=== PATIENT | female | born 1940 | race Caucasian/White ===

== ENCOUNTER → 2023-10-24 14:28 | Outpatient (REF) | payer MEDICARE, OTHER, SELFPAY | LOC: DHCBS HW 14:28 | PROVIDERS: ATTENDING PHYSICIAN Internal Medicine Cardiovascular Disease; FAMILY PHYSICIAN Internal Medicine Geriatric Medicine | DX: I10 Essential (primary) hypertension (principal) | CPT/HCPCS: 93306 ==

== ENCOUNTER → 2023-11-05 06:22 | Day surgery (SDC) | payer MEDICARE, OTHER, SELFPAY | LOC: GI 06:22 | PROVIDERS: ATTENDING PHYSICIAN Internal Medicine Gastroenterology | DX: D50.0 Iron deficiency anemia secondary to blood loss (chronic) (principal); Z53.8 Procedure and treatment not carried out for other reasons | CPT/HCPCS: 45378; 93005 ==

== ENCOUNTER 2023-11-05 10:47 | Emergency (ER) | payer MEDICARE, OTHER, SELFPAY ==
[2023-11-05 10:50] VITALS: BP 181/106
[2023-11-05 11:15] VITALS: BP 158/86
--- NOTE | 2023-11-05 11:22 | ED.GENMED ---
History of Present Illness
General
Chief Complaint: Heart Rate Problem
Source: patient
Exam Limitations: none
Time Seen by Provider: 11/05/23 10:59
Travel History
Have you had any contact with someone who has COVID-19?: No
Do you have any symptoms of coronavirus? Fever > 100 degrees, chills, cough, shortness of breath, sore throat, loss of taste or smell, muscle aches, or headache?: No
History of Present Illness
History of Present Illness:
83-year-old female presents in referral from the GI suite after noted to be having hypertension and tachycardia preoperatively. She was due for an endoscopy and colonoscopy. She has not taken her metoprolol in 2 days. She noted no chest pain
lightheadedness shortness of breath or abdominal pain. She was asymptomatic at the time but they sent her here for evaluation.
Past History
Past History
ED Past Medical History: GERD, Hypothyroidism and Other
ED Past Surgical History: Gynecological and Urological (tyjroidectomy)
Social History
Tobacco: Non-smoker
Personal:
Living: with family
Employment: Retired
Phy Exam
Physical Exam
Physical Exam:
General: Well-appearing female no acute respiratory distress
HEENT: Normocephalic atraumatic mucosa dry
Heart: Regular but tachycardic
Lungs: Clear no wheeze or rales
Abd: Soft not nondistended
Extremities: No cyanosis or edema
Course
Orders/Labs/Results
Orders:
Orders
11/05/23 10:56
Electrocardiogram (*1) Urgent
Reason for Study: Tachycardia
EKG- Treatment ONCE
11/05/23 11:34
Complete Blood Count/With Diff Urgent
Comprehensive Metabolic Panel Urgent
11/05/23 11:40
0.9% Sodium Chloride 500 ml [Nss] 500 ml IV BOLUS
Abnormal Lab Results
11/05/23
11:34
WBC 4.6 L 10^3/uL
(4.8-10.8)
RBC 3.93 L 10^6/uL
(4.20-5.40)
Hgb 11.1 L g/dL
(12.0-16.0)
Hct 33.3 L %
(37.0-47.0)
Absolute Lymphs (auto) 0.7 L 10^3/uL
(1.2-3.4)
Neutrophils % 75.8 H %
(42.2-75.2)
Lymphocytes % 15.1 L %
(20.5-51.1)
Sodium 130 L mmol/L
(135-145)
11/05/23 11:34
11/05/23 11:34
Vital Signs
Initial and Last Documented VS:
Initial Vital Signs
Temp Pulse Resp BP Pulse Ox
98.1 F 105 20 181/106 98
11/05/23 10:50 11/05/23 10:50 11/05/23 10:50 11/05/23 10:50 11/05/23 10:50
Last Documented Vital Signs
Temp Pulse Resp BP Pulse Ox
98.1 F 105 20 181/106 98
11/05/23 10:50 11/05/23 10:50 11/05/23 10:50 11/05/23 10:50 11/05/23 11:15
MDM/Problems Addressed
Differential Diagnosis Includes:
Patient sent in for evaluation of tachycardia and hypertensive preoperatively prior to endoscopy colonoscopy. She received some fluids en route. She denies chest pain. Will check labs to evaluate for electrolyte abnormality or anemia. Hydration
ordered. Currently on the monitor she is in the 90s
*Critical Care Note
Total Time (30-74mins, 75-104mins- exclusive of procedures): Not Applicable
Update Note
Update Note:
Patient reexamined still feels well vital signs have normalized after half a liter of fluid. She has been ambulated to the bathroom without any difficulty. Hemoglobin is 11.1 sodium is 130. No indication for admission.
ED Attending Note
-
Portions of this chart may have been created with voice recognition software.� Occasional wrong word or��sound alike� substitutions may have occurred due to the inherent limitations of voice recognition software.
Discharge Plan
Departure
Patient Disposition: Home (Routine Discharge)
Date of Disposition: 11/05/23
Time of Disposition: 12:53
Patient with high blood pressure during this ER visit?: No
Discharge Problem:
Acute dehydration
Prescriptions:
No Action
levothyroxine 88 MCG tablet
88 mcg PO DAILY
cyclobenzaprine 10 MG tablet
10 mg PO DAILY PRN (Reason: muscle spasms)
Hold Instructions: Resume on 12/31/22. hold while on Baclofen
calcium carbonate 600 MG tablet
1,200 mg PO DAILY
Hair,Skin and Nails 1 EACH tablet
3 ea PO DAILY
Hold Instructions: Resume on 01/01/23.
magnesium oxide 500 MG capsule
500 mg PO DAILY
estradiol [Vagifem] 10 MCG tablet
10 mcg PO SUWE
Excedrin Migraine 1 TABLET tablet
1 tab PO DAILY PRN (Reason: headache)
atorvastatin 20 mg Tablet
20 mg PO DAILY
metoprolol succinate 25 mg Tablet Extended Release 24 Hr
12.5 mg PO DAILY
cranberry 500 mg Capsule
500 mg PO DAILY
Prolia 60 mg/mL Syringe
60 mg SC [id number]
Rx Instructions:
last taken 3 months ago
vitamin E 670 mg (1,000 unit) Capsule
2,680 mg PO DAILY
Rx Instructions:
4,000 unit
diclofenac sodium 1 % gel
2 g TOPICAL TID
Rx Instructions:
apply to right knee and right leg
ibuprofen 200 MG tablet
400 mg PO BID PRN (Reason: mild pain)
pantoprazole 40 mg Tablet,Delayed Release (Dr/Ec)
40 mg PO DAILY Qty: 30 0RF
Referrals:
Deniz Mcgill MD [Family Provider] -
Activity Restrictions/Additional Instructions:
Stay hydrated. Resume current medications peer return if worse otherwise follow-up with your GI and family doctor
Interventions
Interventions:
*Risk Screen - Suicide Last Done: 11/05/23 11:06
*General Assessment Last Done: 11/05/23 11:15
*Neglect/Abuse Screening Last Done: 11/05/23 11:06
*ED COVID-19 Vaccine History Last Done: 11/05/23 11:15
ED- Cardiac Assessment Last Done: 11/05/23 11:15
ED- Pulmonary Assessment Last Done: 11/05/23 11:15
Discharge Date and Time
Print Language: ESTONIAN
[2023-11-05 11:41] VITALS: BP 148/77
[2023-11-05] MEDS: NSS 500 IV (11:41)
[2023-11-05 11:47] LABS: % Basophils 0.4 % (0-2); % Eosinophils 1.3 % (0-6); % Immature Granulocytes 0.2 % (0-0.5); % Lymphocytes 15.1 % (20.5-51.1); % Monocytes 7.2 % (1.7-9.3); % Neutrophils 75.8 % (42.2-75.2); Absolute Eosinophils 0.1 10^3/uL (0-0.7); Absolute Lymphocytes 0.7 10^3/uL (1.2-3.4); Absolute Monocytes 0.3 10^3/uL (0.1-0.6); Absolute Neutrophils 3.5 10^3/uL (1.4-6.5); Hematocrit 33.3 % (37.0-47.0); Hemoglobin 11.1 g/dL (12.0-16.0); Mean Corp Hgb Conc. 33.3 g/dL (33.0-37.0); Mean Corpuscular Hgb 28.2 pg (27.0-31.0); Mean Corpuscular Volume 84.7 fL (81.0-99.0); Mean Platelet Volume 9.4 fL (7.4-10.4); Nucleated Red Blood Cells % 0 %; Platelet Count 200 10^3/uL (130-400); Red Blood Cell Count 3.93 10^6/uL (4.20-5.40); Red Cell Dist. Width 13.6 % (11.5-14.5); White Blood Cell Count 4.6 10^3/uL (4.8-10.8)
[2023-11-05 12:00] VITALS: BP 139/86
[2023-11-05 12:04] LABS: ALT (SGPT) 13 U/L (0-35); AST (SGOT) 26 U/L (14-36); Albumin 4.1 g/dl (3.5-5.0); Alkaline Phosphatase 61 U/L (38-126); Blood Urea Nitrogen 11 mg/dl (7-17); Calcium 8.5 mg/dl (8.4-10.2); Carbon Dioxide 23 mmol/L (22-30); Chloride 101 mmol/L (98-107); Glucose 96 mg/dl (70-99); Potassium 4.4 mmol/L (3.5-5.1); Sodium 130 mmol/L (135-145); Total Bilirubin 0.5 mg/dl (0.2-1.3); Total Protein 6.4 g/dl (6.3-8.2); eGFR > 60.00
[2023-11-05 13:00] VITALS: BP 152/71
== END 2023-11-05 13:08 | disposition home or self-care (01) ==
LOC: EMR 10:47
PROVIDERS: Physician Assistant; EMERGENCY PHYSICIAN Emergency Medicine; FAMILY PHYSICIAN Internal Medicine Geriatric Medicine
DX: E86.0 Dehydration (principal)
CPT/HCPCS: 99284; 80053; 85025; 93005

== ENCOUNTER → 2023-11-21 12:31 | Outpatient (REF) | payer MEDICARE, OTHER, SELFPAY | LOC: DHCBC/DCA 12:31 | PROVIDERS: ATTENDING PHYSICIAN Nurse Practitioner; FAMILY PHYSICIAN Internal Medicine Geriatric Medicine | DX: R00.0 Tachycardia, unspecified (principal); R94.31 Abnormal electrocardiogram [ECG] [EKG]; R42 Dizziness and giddiness | CPT/HCPCS: 78452; 93017; A9500; J2785 ==

== ENCOUNTER 2023-11-23 21:50 | Emergency (ER) | payer MEDICARE, OTHER, SELFPAY ==
[2023-11-23 21:51] VITALS: BP 185/105
[2023-11-23 22:20] LABS: % Basophils 0.5 % (0-2); % Eosinophils 3.3 % (0-6); % Immature Granulocytes 0.3 % (0-0.5); % Lymphocytes 27.5 % (20.5-51.1); % Monocytes 8.7 % (1.7-9.3); % Neutrophils 59.7 % (42.2-75.2); Absolute Eosinophils 0.2 10^3/uL (0-0.7); Absolute Lymphocytes 1.6 10^3/uL (1.2-3.4); Absolute Monocytes 0.5 10^3/uL (0.1-0.6); Absolute Neutrophils 3.5 10^3/uL (1.4-6.5); Hematocrit 31.5 % (37.0-47.0); Hemoglobin 10.8 g/dL (12.0-16.0); Mean Corp Hgb Conc. 34.3 g/dL (33.0-37.0); Mean Corpuscular Hgb 28.5 pg (27.0-31.0); Mean Corpuscular Volume 83.1 fL (81.0-99.0); Mean Platelet Volume 9.7 fL (7.4-10.4); Nucleated Red Blood Cells % 0 %; Platelet Count 243 10^3/uL (130-400); Red Blood Cell Count 3.79 10^6/uL (4.20-5.40); Red Cell Dist. Width 13.4 % (11.5-14.5); White Blood Cell Count 5.8 10^3/uL (4.8-10.8)
[2023-11-23 22:30] LABS: ALT (SGPT) 17 U/L (0-35); AST (SGOT) 28 U/L (14-36); Albumin 4.6 g/dl (3.5-5.0); Alkaline Phosphatase 71 U/L (38-126); Blood Urea Nitrogen 18 mg/dl (7-17); Calcium 9.5 mg/dl (8.4-10.2); Carbon Dioxide 23 mmol/L (22-30); Chloride 98 mmol/L (98-107); Glucose 96 mg/dl (70-99); Potassium 4.5 mmol/L (3.5-5.1); Sodium 131 mmol/L (135-145); Total Bilirubin 0.5 mg/dl (0.2-1.3); Total Protein 6.9 g/dl (6.3-8.2); eGFR > 60.00
[2023-11-23 22:41] LABS: Troponin I < 0.012 ng/ml
--- NOTE | 2023-11-23 22:43 | ED.GENMED ---
History of Present Illness
General
Chief Complaint: Chest Pain
Source: patient
Time Seen by Provider: 11/23/23 22:31
Travel History
Have you had any contact with someone who has COVID-19?: No
Do you have any symptoms of coronavirus? Fever > 100 degrees, chills, cough, shortness of breath, sore throat, loss of taste or smell, muscle aches, or headache?: No
History of Present Illness
History of Present Illness:
83-year-old female presents to the emergency room complaining of pain located in the left lower chest and flank. Pain has been present for the past couple days. She describes it as sharp and it comes and goes. When Presidents only there for short
period of time. No associated shortness of breath. Deep inhalation does not make the pain worse. She is able to perform her normal activities without any problem. Patient did have a stress test recently. No urinary symptoms. Patient thought
her discomfort might be related to gas so she took Gas-X without any improvement. She also took Tums without improvement.
Past History
Past History
ED Past Medical History: GERD, Hypothyroidism and Other
ED Past Surgical History: Gynecological and Urological (tyjroidectomy)
Social History
Tobacco: Non-smoker
Personal:
Living: with family
Employment: Retired
Phy Exam
Physical Exam
Physical Exam:
General: Awake, Alert, Oriented X3. No acute distress, appears stated age
Vitals: Mildly hypertensive e
Head: Atraumatic
Eyes: Pupils equal, EOMI
Throat: Airway intact, no exudates
Neck: Trachea midline
Lungs: Clear and equal b/l
Heart: Regular rate, occasional ectopy no murmurs
Abd: Soft, Nontender, No pulsatile mass
Neuro: Nonfocal
Skin: Warm, dry, no rash
Extremities: pulses equal b/l, no edema
Scores
Heart Score for Chest Pain Patients
STEMI patient?: No
History: Slightly or Non-Suspicious
ECG: Normal
Age: >/= 65 years
Risk Factors: 1 or 2 Risk Factors
Troponin: </= Normal Limit
Heart Score for Chest Pain Patients: 3
Heart Score Risk: 2.5% MACE over next 6 weeks
Course
Orders/Labs/Results
Orders:
Orders
11/23/23 21:54
Electrocardiogram (*1) Urgent
Reason for Study: Chest Pain
EKG- Treatment ONCE
11/23/23 22:09
Complete Blood Count/With Diff Urgent
Comprehensive Metabolic Panel Urgent
Troponin I Urgent
11/23/23 22:42
Acetaminophen [Tylenol] 1,000 mg PO NOW STA
11/23/23 22:43
Urinalysis Reflex To Culture Urgent
Date Specimen was Collected: 11/24/23
Time Specimen was Collected: 00:23
CR Chest - 2 Views Urgent
Comment:
Reason For Exam: lower left chest discomfort
11/24/23 00:33
Urine Microscopic Reflex Cult Urgent
Urine Culture Urgent
ANDRE Source: U
Specimen Description:
Date Specimen was Collected: 11/24/23
Time Specimen was Collected: 00:23
11/24/23 01:20
CT Abd/pel Without Iv Or Oral Urgent
Comment:
Reason For Exam: left flank pain
11/24/23 02:44
Lidocaine [Lidocaine 4% Patch] 1 patch TOPICAL NOW STA
11/24/23 02:53
Cephalexin Monohydrate [Keflex] 500 mg PO NOW STA
Abnormal Lab Results
11/23/23 11/24/23
22:09 00:33
RBC 3.79 L 10^6/uL
(4.20-5.40)
Hgb 10.8 L g/dL
(12.0-16.0)
Hct 31.5 L %
(37.0-47.0)
Sodium 131 L mmol/L
(135-145)
BUN 18 H mg/dl
(7-17)
Leukocyte Esterase Rfl 2+ A
(Negative)
Urine RBC 3-6 A /HPF
(0-2)
Urine WBC (Reflex) 50-60 A /HPF
(0-5)
Urine Bacteria (Reflex) Many A
(Negative)
11/23/23 22:09
11/23/23 22:09
Vital Signs
Initial and Last Documented VS:
Initial Vital Signs
Temp Pulse Resp BP Pulse Ox
97.8 F 79 16 185/105 99
11/23/23 21:51 11/23/23 21:51 11/23/23 21:51 11/23/23 21:51 11/23/23 21:51
Last Documented Vital Signs
Temp Pulse Resp BP Pulse Ox
97.8 F 80 14 168/99 99
11/23/23 21:51 11/24/23 02:35 11/24/23 02:35 11/24/23 02:35 11/23/23 21:51
MDM/Problems Addressed
Differential Diagnosis Includes:
Chest wall strain, acute coronary syndrome, pneumothorax, kidney stone,
MDM/Problems Addressed:
Patient's presentation does not seem consistent with acute coronary syndrome. Her EKG shows no ischemic changes. Troponin is normal. Chest x-ray shows no acute abnormalities. CT of the abdomen pelvis performed which shows no evidence of kidney
stone. Urinalysis suggestive of urinary tract infection with 50-60 WBCs. There are a increased number of squames and urethral cells. This could represent contamination but with such a large number of WBCs I suspect it is more consistent with an
infection so we will cover with Keflex. Patient is noted to have had some rash with Rocephin but this was given simultaneously with morphine. Suspect the rash is more likely with morphine she is tolerated other cephalosporins in the past.
*Radiology
Radiology exam reviewed: preliminary read by ED provider (Chest x-ray reviewed by myself no acute disease) and radiology read reviewed
*Pulse Oximetry
Patient hypoxic: no
*EKG
Interpreted by ED Provider?: Yes
Interpretation: abnormal
Heart Rate: 70
Rate: normal
Rhythm: sinus
Willow: normal axis
QRS Pattern: normal QRS
Ischemia: no ischemia
*Clinical Trials Nurse Interpretation
Interpretation: normal
Rhythm: sinus
*Critical Care Note
Total Time (30-74mins, 75-104mins- exclusive of procedures): Not Applicable
ED Attending Note
-
Portions of this chart may have been created with voice recognition software.� Occasional wrong word or��sound alike� substitutions may have occurred due to the inherent limitations of voice recognition software.
Discharge Plan
Departure
Patient Disposition: Home (Routine Discharge)
Date of Disposition: 11/24/23
Time of Disposition: 02:43
Patient with high blood pressure during this ER visit?: No
Condition: Good
Discharge Problem:
Acute chest wall pain, Acute UTI
Instructions: Chest Pain That Is Not Caused by the Heart (DC), Urinary Tract Infection, Adult ED
Prescriptions:
New
cephalexin 500 mg capsule
500 mg PO BID 7 Days Qty: 14 0RF
No Action
cyclobenzaprine 10 MG tablet
10 mg PO DAILY PRN (Reason: muscle spasms)
Hold Instructions: Resume on 12/31/22. hold while on Baclofen
calcium carbonate 600 MG tablet
1,200 mg PO DAILY
Hair,Skin and Nails 1 EACH tablet
3 ea PO DAILY
Hold Instructions: Resume on 01/01/23.
estradiol [Vagifem] 10 MCG tablet
10 mcg vaginal SUWE
metoprolol succinate 25 mg Tablet Extended Release 24 Hr
12.5 mg PO DAILY
cranberry 500 mg Capsule
500 mg PO DAILY
Prolia 60 mg/mL Syringe
60 mg SC [id number]
atorvastatin 40 mg Tablet
40 mg PO DAILY
hydrocodone-acetaminophen 5-325 mg Tablet
1 tab PO PRN PRN (Reason: peripheral neuropathy)
levothyroxine [Synthroid] 100 mcg Tablet
100 mcg PO DAILY
Centrum Silver Tablet
1 tab PO DAILY
Vitamin D3 100 mcg (4,000 unit) Capsule
100 mcg PO DAILY
potassium gluconate
2 tab PO HS
Referrals:
Deniz Mcgill MD [Family Provider] -
Activity Restrictions/Additional Instructions:
Take the antibiotic, Keflex, twice a day for one week. Follow up with Dr. Mcgill.
Interventions
Interventions:
*Risk Screen - Suicide Last Done: 11/23/23 21:51
*General Assessment Last Done: 11/23/23 21:51
*Neglect/Abuse Screening Last Done: 11/23/23 21:51
*ED COVID-19 Vaccine History Last Done: 11/23/23 23:30
ED- Cardiac Assessment Last Done: 11/23/23 23:30
Discharge Date and Time
Print Language: SAMI
[2023-11-23 23:22] VITALS: BMI 21.2
--- NOTE | 2023-11-23 23:23 | EDRN ---
Pt went for nuclear stress test on afternoon and felt lightheaded. Pt felt same yesterday. This morning, pt woke with pain in L chest that was intermittent and tonight, pain became constant so she called Dr Mcgill and she was instructed
to come to the ED. Thinking it was indigestion earlier, pt took 2 Tums then tried Gas-X around 1900. Pt feels bursts of 'electric shocks' that she usually feels in her feel due to peripheral neuropathy however she is feeling same in her L chest.
Pt denies sob, abd pain, n/v, fever/chills/cough, urinary symptoms
[2023-11-23] MEDS: TYLENOL 1000 MG PO (23:26)
[2023-11-23 23:30] VITALS: BP 169/84
[2023-11-24 00:46] LABS: Urine Albumin Negative (Neg - Trace); Urine Bilirubin Negative (Negative); Urine Character Slightly Cloudy (Clear); Urine Color Yellow; Urine Glucose Negative (Negative); Urine Ketone Negative (Negative); Urine Leukocyte 2+ (Negative); Urine Nitrite Negative (Negative); Urine Occult Blood Negative (Negative); Urine Urobilinogen Negative (Neg - 1+)
[2023-11-24 01:04] LABS: Urine Bacteria Many (Negative); Urine Squamous Cell >30 /LPF (Few); Urine Urothelial Cell 16-20 /LPF (FEW); Urine White Cell 50-60 /HPF (0-5)
[2023-11-24 02:35] VITALS: BP 168/99
[2023-11-24] MEDS: KEFLEX 500 MG PO (03:00)
[2023-11-24] MEDS: LIDOCAINE 4% PATCH 1 PATCH TOPICAL (03:02)
== END 2023-11-24 03:15 | disposition home or self-care (01) ==
LOC: EMR 21:50
PROVIDERS: Emergency Medicine; EMERGENCY PHYSICIAN Emergency Medicine; FAMILY PHYSICIAN Internal Medicine Geriatric Medicine
DX: N39.0 Urinary tract infection, site not specified (principal); R07.89 Other chest pain; K21.9 Gastro-esophageal reflux disease without esophagitis; E03.9 Hypothyroidism, unspecified; R10.9 Unspecified abdominal pain; Z88.2 Allergy status to sulfonamides; Z88.8 Allergy status to other drugs, medicaments and biological substances; Z88.1 Allergy status to other antibiotic agents; Z91.040 Latex allergy status; Z91.018 Allergy to other foods
CPT/HCPCS: 99284; 71046; 74176; 80053; 81003; 81015; 84484; 85025; 87086; 87088; 87186; 93005

== ENCOUNTER 2023-12-24 06:17 | Day surgery (SDC) | payer MEDICARE, OTHER, SELFPAY ==
[2023-12-24 10:51] VITALS: BMI 21.9
[2023-12-24 10:52] VITALS: BMI 21.9
[2023-12-24 10:53] VITALS: BP 148/77
[2023-12-24 14:17] VITALS: BP 150/80
[2023-12-24 14:30] VITALS: BP 165/98
[2023-12-24 14:45] VITALS: BP 158/76
== END 2023-12-24 15:00 | disposition home or self-care (01) ==
LOC: GI 06:17
PROVIDERS: ATTENDING PHYSICIAN Internal Medicine
DX: K57.30 Diverticulosis of large intestine without perforation or abscess without bleeding (principal); K64.8 Other hemorrhoids; K64.9 Unspecified hemorrhoids; D50.9 Iron deficiency anemia, unspecified; Q39.9 Congenital malformation of esophagus, unspecified; K44.9 Diaphragmatic hernia without obstruction or gangrene; K31.811 Angiodysplasia of stomach and duodenum with bleeding; K31.89 Other diseases of stomach and duodenum
CPT/HCPCS: 45378; 43239; 88305; 88342

== ENCOUNTER → 2024-01-01 08:10 | Outpatient (REF) | payer MEDICARE, OTHER, SELFPAY ==
[2024-01-01 12:50] LABS: % Basophils 0.9 % (0-2); % Eosinophils 5.1 % (0-6); % Immature Granulocytes 0.4 % (0-0.5); % Lymphocytes 29.4 % (20.5-51.1); % Neutrophils 54.2 % (42.2-75.2); Absolute Eosinophils 0.2 10^3/uL (0-0.7); Absolute Lymphocytes 1.3 10^3/uL (1.2-3.4); Absolute Monocytes 0.5 10^3/uL (0.1-0.6); Absolute Neutrophils 2.4 10^3/uL (1.4-6.5); Hematocrit 32.9 % (37.0-47.0); Hemoglobin 10.9 g/dL (12.0-16.0); Mean Corp Hgb Conc. 33.1 g/dL (33.0-37.0); Mean Corpuscular Hgb 28.5 pg (27.0-31.0); Mean Corpuscular Volume 86.1 fL (81.0-99.0); Mean Platelet Volume 10.6 fL (7.4-10.4); Nucleated Red Blood Cells % 0 %; Platelet Count 231 10^3/uL (130-400); Red Blood Cell Count 3.82 10^6/uL (4.20-5.40); Red Cell Dist. Width 13.5 % (11.5-14.5); White Blood Cell Count 4.5 10^3/uL (4.8-10.8)
[2024-01-01 13:18] LABS: ALT (SGPT) 15 U/L (0-35); AST (SGOT) 27 U/L (14-36); Alkaline Phosphatase 62 U/L (38-126); Blood Urea Nitrogen 14 mg/dl (7-17); Calcium 9.3 mg/dl (8.4-10.2); Carbon Dioxide 27 mmol/L (22-30); Chloride 103 mmol/L (98-107); Glucose 90 mg/dl (70-99); Lipase 88 U/L (23-300); Potassium 4.9 mmol/L (3.5-5.1); Sodium 135 mmol/L (135-145); Total Bilirubin 0.5 mg/dl (0.2-1.3); Total Protein 6.1 g/dl (6.3-8.2); eGFR > 60.00
[2024-01-01 13:19] LABS: Iron 117 ug/dl (37-170)
[2024-01-01 13:28] LABS: Percent Saturation 32 % (20-50); Total Iron Binding Capacity 355 ug/dl (265-497)
[2024-01-01 13:50] LABS: Ferritin 12.1 ng/ml (11.1-264.0)
== END ==
LOC: HWLAB 08:10
PROVIDERS: ATTENDING PHYSICIAN Nurse Practitioner Family; FAMILY PHYSICIAN Internal Medicine Geriatric Medicine
DX: Z00.00 Encounter for general adult medical examination without abnormal findings (principal); R10.10 Upper abdominal pain, unspecified; G47.62 Sleep related leg cramps; E61.1 Iron deficiency; D64.9 Anemia, unspecified; I10 Essential (primary) hypertension; G62.9 Polyneuropathy, unspecified; E78.2 Mixed hyperlipidemia
CPT/HCPCS: 36415; 80053; 82728; 83540; 83550; 83690; 85025

== ENCOUNTER → 2024-01-22 08:44 | Outpatient (REF) | payer MEDICARE, OTHER, SELFPAY | LOC: HWRAD 08:44 | PROVIDERS: ATTENDING PHYSICIAN Nurse Practitioner Family; FAMILY PHYSICIAN Internal Medicine Geriatric Medicine | DX: Z00.00 Encounter for general adult medical examination without abnormal findings (principal); R10.10 Upper abdominal pain, unspecified; G47.62 Sleep related leg cramps; E61.1 Iron deficiency; D64.9 Anemia, unspecified | CPT/HCPCS: 76700 ==

== ENCOUNTER → 2024-02-03 07:12 | Outpatient (REF) | payer MEDICARE, OTHER, SELFPAY ==
[2024-02-03 10:24] LABS: % Basophils 0.8 % (0-2); % Immature Granulocytes 0.2 % (0-0.5); % Lymphocytes 32.6 % (20.5-51.1); % Monocytes 8.7 % (1.7-9.3); % Neutrophils 54.7 % (42.2-75.2); Absolute Eosinophils 0.2 10^3/uL (0-0.7); Absolute Lymphocytes 1.7 10^3/uL (1.2-3.4); Absolute Monocytes 0.5 10^3/uL (0.1-0.6); Absolute Neutrophils 2.9 10^3/uL (1.4-6.5); Hematocrit 32.5 % (37.0-47.0); Hemoglobin 11.1 g/dL (12.0-16.0); Mean Corp Hgb Conc. 34.2 g/dL (33.0-37.0); Mean Corpuscular Hgb 28.8 pg (27.0-31.0); Mean Corpuscular Volume 84.2 fL (81.0-99.0); Mean Platelet Volume 9.9 fL (7.4-10.4); Nucleated Red Blood Cells % 0 %; Platelet Count 215 10^3/uL (130-400); Red Blood Cell Count 3.86 10^6/uL (4.20-5.40); Red Cell Dist. Width 13.2 % (11.5-14.5); White Blood Cell Count 5.3 10^3/uL (4.8-10.8)
[2024-02-03 10:31] LABS: Iron 68 ug/dl (37-170)
[2024-02-03 10:41] LABS: Percent Saturation 19 % (20-50); Total Iron Binding Capacity 346 ug/dl (265-497)
[2024-02-03 10:44] LABS: Free T4 1.47 ng/dl (0.78-2.19)
[2024-02-03 10:58] LABS: TSH < 0.02 uIU/ml (0.47-4.68)
[2024-02-03 11:02] LABS: Ferritin 10.2 ng/ml (11.1-264.0)
== END ==
LOC: HWLAB 07:12
PROVIDERS: ATTENDING PHYSICIAN Nurse Practitioner Family
DX: I10 Essential (primary) hypertension (principal); E03.9 Hypothyroidism, unspecified; E78.2 Mixed hyperlipidemia; D64.9 Anemia, unspecified; M81.0 Age-related osteoporosis without current pathological fracture
CPT/HCPCS: 36415; 82728; 83540; 83550; 84439; 84443; 85025

== ENCOUNTER 2024-02-12 13:45 | Outpatient (RCR) | payer MEDICARE, OTHER, SELFPAY ==
[2024-02-12 13:56] VITALS: BP 143/55
[2024-02-12] MEDS: INJECTAFER 265 MG IV (14:07)
[2024-02-12 14:50] VITALS: BP 145/57
== END 2024-02-13 08:46 | disposition home or self-care (01) ==
LOC: OID 13:45
PROVIDERS: ATTENDING PHYSICIAN Nurse Practitioner Family; FAMILY PHYSICIAN Internal Medicine Geriatric Medicine
DX: D50.9 Iron deficiency anemia, unspecified (principal); E61.1 Iron deficiency; G62.9 Polyneuropathy, unspecified
CPT/HCPCS: 96365; J1439

== ENCOUNTER → 2024-03-17 08:46 | Outpatient (REF) | payer MEDICARE, OTHER, SELFPAY ==
[2024-03-17 11:48] LABS: ALT (SGPT) 15 U/L (0-35); AST (SGOT) 28 U/L (14-36); Alkaline Phosphatase 67 U/L (38-126); Blood Urea Nitrogen 14 mg/dl (7-17); Calcium 9.3 mg/dl (8.4-10.2); Carbon Dioxide 26 mmol/L (22-30); Chloride 100 mmol/L (98-107); Glucose 88 mg/dl (70-99); HDL Cholesterol 54 mg/dl; Iron 119 ug/dl (37-170); LDL Cholesterol, Calculated 66 mg/dl; Potassium 4.9 mmol/L (3.5-5.1); Sodium 134 mmol/L (135-145); Total Bilirubin 0.5 mg/dl (0.2-1.3); Total Cholesterol 137 mg/dl (50-199); Triglyceride 86 mg/dl (10-149); Very Low Density Lipoprotein 17 mg/dl (0-30); eGFR > 60.00
[2024-03-17 11:50] LABS: % Basophils 0.5 % (0-2); % Eosinophils 3.4 % (0-6); % Immature Granulocytes 0.2 % (0-0.5); % Lymphocytes 29.3 % (20.5-51.1); % Monocytes 8.4 % (1.7-9.3); % Neutrophils 58.2 % (42.2-75.2); Absolute Eosinophils 0.2 10^3/uL (0-0.7); Absolute Lymphocytes 1.3 10^3/uL (1.2-3.4); Absolute Monocytes 0.4 10^3/uL (0.1-0.6); Absolute Neutrophils 2.6 10^3/uL (1.4-6.5); Hemoglobin 11.9 g/dL (12.0-16.0); Mean Corpuscular Hgb 29.3 pg (27.0-31.0); Mean Corpuscular Volume 86.2 fL (81.0-99.0); Mean Platelet Volume 9.6 fL (7.4-10.4); Nucleated Red Blood Cells % 0 %; Platelet Count 199 10^3/uL (130-400); Red Blood Cell Count 4.06 10^6/uL (4.20-5.40); Red Cell Dist. Width 14.3 % (11.5-14.5); White Blood Cell Count 4.4 10^3/uL (4.8-10.8)
[2024-03-17 11:57] LABS: Percent Saturation 44 % (20-50); Total Iron Binding Capacity 266 ug/dl (265-497)
[2024-03-17 12:20] LABS: Free T4 1.23 ng/dl (0.78-2.19)
[2024-03-17 12:34] LABS: TSH 3.17 uIU/ml (0.47-4.68)
== END ==
LOC: HWLAB 08:46
PROVIDERS: ATTENDING PHYSICIAN Internal Medicine Geriatric Medicine
DX: I10 Essential (primary) hypertension (principal); G89.29 Other chronic pain; G62.9 Polyneuropathy, unspecified; E03.9 Hypothyroidism, unspecified; E78.2 Mixed hyperlipidemia; E61.1 Iron deficiency; D64.9 Anemia, unspecified; M81.0 Age-related osteoporosis without current pathological fracture; E55.9 Vitamin D deficiency, unspecified
CPT/HCPCS: 36415; 80053; 80061; 82306; 83540; 83550; 84439; 84443; 85025

== ENCOUNTER → 2024-04-08 16:20 | Outpatient (REF) | payer MEDICARE, OTHER, SELFPAY | LOC: MRI 3T 16:20 | PROVIDERS: ATTENDING PHYSICIAN Internal Medicine Geriatric Medicine | DX: I10 Essential (primary) hypertension (principal); G89.29 Other chronic pain; G62.9 Polyneuropathy, unspecified; E03.9 Hypothyroidism, unspecified; I83.813 Varicose veins of bilateral lower extremities with pain; E78.2 Mixed hyperlipidemia; Z96.659 Presence of unspecified artificial knee joint; E61.1 Iron deficiency; D64.9 Anemia, unspecified; M81.0 Age-related osteoporosis without current pathological fracture; E55.9 Vitamin D deficiency, unspecified | CPT/HCPCS: 72158; A9575 ==

== ENCOUNTER → 2024-04-24 09:37 | Outpatient (REF) | payer MEDICARE, OTHER, SELFPAY ==
[2024-04-24 12:52] LABS: % Basophils 0.9 % (0-2); % Eosinophils 4.2 % (0-6); % Immature Granulocytes 0.2 % (0-0.5); % Lymphocytes 29.9 % (20.5-51.1); % Monocytes 8.4 % (1.7-9.3); % Neutrophils 56.4 % (42.2-75.2); Absolute Eosinophils 0.2 10^3/uL (0-0.7); Absolute Lymphocytes 1.4 10^3/uL (1.2-3.4); Absolute Monocytes 0.4 10^3/uL (0.1-0.6); Absolute Neutrophils 2.6 10^3/uL (1.4-6.5); Hematocrit 34.9 % (37.0-47.0); Hemoglobin 12.2 g/dL (12.0-16.0); Mean Corpuscular Volume 85.7 fL (81.0-99.0); Mean Platelet Volume 10.1 fL (7.4-10.4); Nucleated Red Blood Cells % 0 %; Platelet Count 187 10^3/uL (130-400); Red Blood Cell Count 4.07 10^6/uL (4.20-5.40); White Blood Cell Count 4.6 10^3/uL (4.8-10.8)
[2024-04-24 13:08] LABS: ALT (SGPT) 18 U/L (0-35); AST (SGOT) 29 U/L (14-36); Albumin 4.2 g/dl (3.5-5.0); Alkaline Phosphatase 52 U/L (38-126); Blood Urea Nitrogen 18 mg/dl (7-17); Calcium 9.3 mg/dl (8.4-10.2); Carbon Dioxide 24 mmol/L (22-30); Chloride 101 mmol/L (98-107); Glucose 81 mg/dl (70-99); Potassium 4.3 mmol/L (3.5-5.1); Sodium 136 mmol/L (135-145); Total Bilirubin 0.6 mg/dl (0.2-1.3); Total Protein 6.2 g/dl (6.3-8.2); eGFR > 60.00
[2024-04-24 13:10] LABS: C-Reactive Protein < 5.00 mg/L (0.0-10.00)
[2024-04-24 13:27] LABS: Vitamin D, 25-OH*** 50.2 ng/mL (30-80)
[2024-04-24 13:57] LABS: Protein/creatinine Ratio 0.3; Urine Protein 18 mg/dl
== END ==
LOC: HWLAB 09:37
PROVIDERS: ATTENDING PHYSICIAN Internal Medicine Rheumatology; FAMILY PHYSICIAN Internal Medicine Geriatric Medicine
DX: E55.9 Vitamin D deficiency, unspecified (principal); R76.8 Other specified abnormal immunological findings in serum; Z79.899 Other long term (current) drug therapy
CPT/HCPCS: 36415; 80053; 82306; 82570; 84156; 85025; 86140

== ENCOUNTER → 2024-05-29 12:38 | Outpatient (REF) | payer MEDICARE, OTHER, SELFPAY | LOC: HWLAB 12:38 | PROVIDERS: ATTENDING PHYSICIAN Obstetrics & Gynecology Female Pelvic Medicine and Reconstructive Surgery; FAMILY PHYSICIAN Internal Medicine Geriatric Medicine | DX: R39.15 Urgency of urination (principal) | CPT/HCPCS: 36415; 87077; 87086; 87186 ==

== ENCOUNTER → 2024-05-29 18:41 | Outpatient (REF) | payer MEDICARE, OTHER, SELFPAY | LOC: PAVMRI 18:41 | PROVIDERS: ATTENDING PHYSICIAN Psychiatry & Neurology Neurology; FAMILY PHYSICIAN Internal Medicine Geriatric Medicine | DX: M54.14 Radiculopathy, thoracic region (principal) | CPT/HCPCS: 72146 ==

== ENCOUNTER → 2024-07-14 12:13 | Outpatient (REF) | payer MEDICARE, OTHER, SELFPAY | LOC: REG 12:13 | PROVIDERS: ATTENDING PHYSICIAN Obstetrics & Gynecology Female Pelvic Medicine and Reconstructive Surgery; FAMILY PHYSICIAN Internal Medicine Geriatric Medicine | DX: R39.15 Urgency of urination (principal) | CPT/HCPCS: 87077; 87086; 87186 ==

== ENCOUNTER → 2024-07-22 12:51 | Outpatient (REF) | payer MEDICARE, OTHER, SELFPAY | LOC: HWWDC 12:51 | PROVIDERS: ATTENDING PHYSICIAN Internal Medicine Geriatric Medicine | DX: Z12.31 Encounter for screening mammogram for malignant neoplasm of breast (principal) | CPT/HCPCS: 77063; 77067 ==

== ENCOUNTER → 2024-08-17 13:26 | Outpatient (REF) | payer MEDICARE, OTHER, SELFPAY | LOC: REG 13:26 | PROVIDERS: ATTENDING PHYSICIAN Obstetrics & Gynecology Female Pelvic Medicine and Reconstructive Surgery; FAMILY PHYSICIAN Internal Medicine Geriatric Medicine | DX: R30.0 Dysuria (principal); R39.15 Urgency of urination | CPT/HCPCS: 87077; 87086; 87186 ==

== ENCOUNTER → 2024-09-17 08:30 | Outpatient (REF) | payer MEDICARE, OTHER, SELFPAY | LOC: REG 08:30 | PROVIDERS: ATTENDING PHYSICIAN Obstetrics & Gynecology Female Pelvic Medicine and Reconstructive Surgery; FAMILY PHYSICIAN Internal Medicine Geriatric Medicine | DX: R30.0 Dysuria (principal); R39.15 Urgency of urination | CPT/HCPCS: 87077; 87086; 87186 ==

== ENCOUNTER → 2024-10-06 10:50 | Outpatient (REF) | payer MEDICARE, OTHER, SELFPAY | LOC: REG 10:50 | PROVIDERS: ATTENDING PHYSICIAN Obstetrics & Gynecology Female Pelvic Medicine and Reconstructive Surgery; FAMILY PHYSICIAN Internal Medicine Geriatric Medicine | DX: R30.0 Dysuria (principal); R39.15 Urgency of urination | CPT/HCPCS: 87077; 87086; 87186 ==

== ENCOUNTER → 2024-11-02 07:45 | Outpatient (REF) | payer MEDICARE, OTHER, SELFPAY ==
[2024-11-02 09:20] LABS: % Basophils 0.6 % (0-2); % Eosinophils 3.1 % (0-6); % Immature Granulocytes 0.2 % (0-0.5); % Lymphocytes 24.8 % (20.5-51.1); % Monocytes 9.3 % (1.7-9.3); Absolute Eosinophils 0.2 10^3/uL (0-0.7); Absolute Lymphocytes 1.3 10^3/uL (1.2-3.4); Absolute Monocytes 0.5 10^3/uL (0.1-0.6); Absolute Neutrophils 3.2 10^3/uL (1.4-6.5); Hemoglobin 12.1 g/dL (12.0-16.0); Mean Corp Hgb Conc. 33.6 g/dL (33.0-37.0); Mean Corpuscular Hgb 30.1 pg (27.0-31.0); Mean Corpuscular Volume 89.6 fL (81.0-99.0); Mean Platelet Volume 9.7 fL (7.4-10.4); Nucleated Red Blood Cells % 0 %; Platelet Count 227 10^3/uL (130-400); Red Blood Cell Count 4.02 10^6/uL (4.20-5.40); White Blood Cell Count 5.1 10^3/uL (4.8-10.8)
[2024-11-02 09:51] LABS: ALT (SGPT) 20 U/L (0-35); AST (SGOT) 27 U/L (14-36); Albumin 3.9 g/dl (3.5-5.0); Alkaline Phosphatase 46 U/L (38-126); Blood Urea Nitrogen 13 mg/dl (7-17); Calcium 9.1 mg/dl (8.4-10.2); Carbon Dioxide 26 mmol/L (22-30); Chloride 104 mmol/L (98-107); Glucose 100 mg/dl (70-99); Potassium 4.8 mmol/L (3.5-5.1); Sodium 137 mmol/L (135-145); Total Bilirubin 0.6 mg/dl (0.2-1.3); eGFR > 60.00
[2024-11-02 10:06] LABS: Complement C3 96 mg/dl (88-165)
[2024-11-02 10:14] LABS: Protein/creatinine Ratio 0.3; Urine Protein 22 mg/dl
[2024-11-02 12:07] LABS: C-Reactive Protein < 5.00 mg/L (0.0-10.00)
== END ==
LOC: HWLAB 07:45
PROVIDERS: ATTENDING PHYSICIAN Internal Medicine Rheumatology; FAMILY PHYSICIAN Internal Medicine Geriatric Medicine
DX: D64.9 Anemia, unspecified (principal); E03.9 Hypothyroidism, unspecified; E55.9 Vitamin D deficiency, unspecified; G60.9 Hereditary and idiopathic neuropathy, unspecified; M81.0 Age-related osteoporosis without current pathological fracture; N39.0 Urinary tract infection, site not specified; R76.8 Other specified abnormal immunological findings in serum; Z79.899 Other long term (current) drug therapy
CPT/HCPCS: 36415; 80053; 82570; 84156; 85025; 86140; 86160

== ENCOUNTER → 2024-12-14 07:35 | Outpatient (REF) | payer MEDICARE, OTHER, SELFPAY ==
[2024-12-14 09:19] LABS: % Basophils 0.6 % (0-2); % Eosinophils 2.4 % (0-6); % Immature Granulocytes 0.3 % (0-0.5); % Lymphocytes 28.1 % (20.5-51.1); % Monocytes 9.1 % (1.7-9.3); % Neutrophils 59.5 % (42.2-75.2); Absolute Eosinophils 0.2 10^3/uL (0-0.7); Absolute Monocytes 0.7 10^3/uL (0.1-0.6); Absolute Neutrophils 4.3 10^3/uL (1.4-6.5); Hematocrit 35.2 % (37.0-47.0); Hemoglobin 11.9 g/dL (12.0-16.0); Mean Corp Hgb Conc. 33.8 g/dL (33.0-37.0); Mean Corpuscular Hgb 30.6 pg (27.0-31.0); Mean Corpuscular Volume 90.5 fL (81.0-99.0); Mean Platelet Volume 9.6 fL (7.4-10.4); Nucleated Red Blood Cells % 0 %; Platelet Count 231 10^3/uL (130-400); Red Blood Cell Count 3.89 10^6/uL (4.20-5.40); Red Cell Dist. Width 12.4 % (11.5-14.5); White Blood Cell Count 7.1 10^3/uL (4.8-10.8)
[2024-12-14 09:29] LABS: ALT (SGPT) 17 U/L (0-35); AST (SGOT) 24 U/L (14-36); Albumin 4.1 g/dl (3.5-5.0); Alkaline Phosphatase 57 U/L (38-126); Blood Urea Nitrogen 18 mg/dl (7-17); Calcium 8.9 mg/dl (8.4-10.2); Carbon Dioxide 23 mmol/L (22-30); Chloride 104 mmol/L (98-107); Glucose 91 mg/dl (70-99); HDL Cholesterol 51 mg/dl; LDL Cholesterol, Calculated 73 mg/dl; Potassium 4.7 mmol/L (3.5-5.1); Sodium 134 mmol/L (135-145); Total Bilirubin 0.5 mg/dl (0.2-1.3); Total Cholesterol 140 mg/dl (50-199); Total Protein 6.2 g/dl (6.3-8.2); Triglyceride 81 mg/dl (10-149); Very Low Density Lipoprotein 16 mg/dl (0-30); eGFR > 60.00
[2024-12-14 09:46] LABS: Vitamin D, 25-OH*** 47.7 ng/mL (30-80)
[2024-12-14 10:05] LABS: Ferritin 25.7 ng/ml (11.1-264.0)
[2024-12-14 14:01] LABS: Urine Albumin Negative (Neg - Trace); Urine Bilirubin Negative (Negative); Urine Character Clear (Clear); Urine Color Yellow; Urine Glucose Negative (Negative); Urine Ketone Negative (Negative); Urine Leukocyte 1+ (Negative); Urine Nitrite Negative (Negative); Urine Occult Blood Negative (Negative); Urine Specific Gravity 1.015 (<1.030); Urine Urobilinogen Negative (Neg - 1+)
[2024-12-14 14:23] LABS: Urine Squamous Cell >30 /LPF (Few)
[2024-12-14 14:24] LABS: Urine Mucus Few
[2024-12-14 14:25] LABS: Urine Bacteria Few (Negative); Urine Red Blood Cell 0-2 /HPF (0-2)
[2024-12-14 15:02] LABS: Protein/creatinine Ratio 0.1; Urine Protein 11 mg/dl
== END ==
LOC: HWLAB 07:35
PROVIDERS: ATTENDING PHYSICIAN Internal Medicine Rheumatology; FAMILY PHYSICIAN Internal Medicine Geriatric Medicine
DX: R80.8 Other proteinuria (principal); I10 Essential (primary) hypertension; G89.29 Other chronic pain; G62.9 Polyneuropathy, unspecified; E03.9 Hypothyroidism, unspecified; I83.813 Varicose veins of bilateral lower extremities with pain; E78.2 Mixed hyperlipidemia; E61.1 Iron deficiency; D64.9 Anemia, unspecified; M81.0 Age-related osteoporosis without current pathological fracture; E55.9 Vitamin D deficiency, unspecified; D36.10 Benign neoplasm of peripheral nerves and autonomic nervous system, unspecified; N39.0 Urinary tract infection, site not specified
CPT/HCPCS: 36415; 80053; 80061; 81003; 81015; 82306; 82570; 82728; 84156; 85025; 87086

== ENCOUNTER → 2025-05-18 08:43 | Outpatient (REF) | payer MEDICARE, OTHER, SELFPAY ==
[2025-05-18 12:34] LABS: ALT (SGPT) 16 U/L (0-35); AST (SGOT) 25 U/L (14-36); Albumin 4.0 g/dl (3.5-5.0); Alkaline Phosphatase 80 U/L (38-126); Blood Urea Nitrogen 28 mg/dl (7-17); Calcium 8.9 mg/dl (8.4-10.2); Carbon Dioxide 27 mmol/L (22-30); Chloride 98 mmol/L (98-107); Glucose 86 mg/dl (70-99); Potassium 4.9 mmol/L (3.5-5.1); Sodium 130 mmol/L (135-145); Total Protein 6.3 g/dl (6.3-8.2); eGFR > 60.00
[2025-05-18 12:38] LABS: C-Reactive Protein 5.20 mg/L (0.0-10.00)
[2025-05-18 12:54] LABS: Vitamin D, 25-OH*** 48.0 ng/mL (30-80)
[2025-05-18 13:27] LABS: Hematocrit 37.3 % (37.0-47.0); Hemoglobin 12.1 g/dL (12.0-16.0); Mean Corp Hgb Conc. 32.4 g/dL (33.0-37.0); Mean Corpuscular Volume 92.8 fL (81.0-99.0); Nucleated Red Blood Cells % 0 %; Platelet Count 248 10^3/uL (130-400); Red Cell Dist. Width 11.9 % (11.5-14.5)
== END ==
LOC: HWLAB 08:43
PROVIDERS: ATTENDING PHYSICIAN Internal Medicine Rheumatology; FAMILY PHYSICIAN Internal Medicine Geriatric Medicine
DX: D64.9 Anemia, unspecified (principal); E03.9 Hypothyroidism, unspecified; E55.9 Vitamin D deficiency, unspecified; G60.9 Hereditary and idiopathic neuropathy, unspecified; M81.0 Age-related osteoporosis without current pathological fracture; N39.0 Urinary tract infection, site not specified; R76.81 Abnormal rheumatoid factor and anti-citrullinated protein antibody without rheumatoid arthritis; R80.8 Other proteinuria; Z79.899 Other long term (current) drug therapy
CPT/HCPCS: 36415; 80053; 82306; 82570; 84156; 85025; 86140; 86160